=== PATIENT | male | born 1970 | race Hispanic/Latino ===

== ENCOUNTER 2020-07-13 13:16 | Emergency (ER) | payer OTHER ==
[~2020-07-13] VITALS: Ht 165.1 cm; Wt 109.0 kg
[2020-07-13] MEDS ORDERED: BENADRYL 50MG C50 MG PO (14:53)
[2020-07-13] MEDS ORDERED: PATADAY0.2 % OS (14:53)
[2020-07-13 15:06] VITALS: BP 131/87
== END 2020-07-13 15:06 | disposition home or self-care (01) | DRG 125 ==
LOC: ED 13:16
DX: H10.12 Acute atopic conjunctivitis, left eye (principal)